=== PATIENT | female | born 1985 | race Caucasian/White ===

== ENCOUNTER → 2017-10-08 11:45 | Outpatient (CLI) | payer MEDICAID, SELFPAY ==
[2017-10-09 16:01] LABS: Chlamydia Trachomatis by PCR Negative (Negative); Neisserai gonorrhoeae by PCR Negative (Negative); Probe Check PASS; Sample Adequacy Control PASS; Specimen Processing Control PASS
[2017-10-11 15:14] LABS: HPV APTIMA, High Risk Negative (Negative)
== END ==
PROVIDERS: Visit Provider Obstetrics & Gynecology
DX: Z12.4 Encounter for screening for malignant neoplasm of cervix (principal); Z11.3 Encounter for screening for infections with a predominantly sexual mode of transmission
CPT/HCPCS: 87491; 87591; 88175; G0145

== ENCOUNTER → 2017-11-21 11:58 | Outpatient (CLI) | payer MEDICAID, SELFPAY ==
[2017-11-26 11:27] LABS: PARVOVIRUS B19 IGG 7.2 index (0.0-0.8); PARVOVIRUS B19 IGM 0.3 index (0.0-0.8)
== END ==
PROVIDERS: Visit Provider Obstetrics & Gynecology
DX: O26.899 Other specified pregnancy related conditions, unspecified trimester (principal); Z3A.00 Weeks of gestation of pregnancy not specified; T75.89XA Other specified effects of external causes, initial encounter
CPT/HCPCS: 36415; 86747

== ENCOUNTER → 2018-04-08 13:30 | Outpatient (CLI) | payer MEDICAID, SELFPAY ==
[2018-04-09 13:13] LABS: Group B Strep DNA By PCR Negative (Negative); Internal Control PASS; Probe Check PASS; Specimen Processing Control PASS
== END ==
PROVIDERS: Visit Provider Obstetrics & Gynecology
DX: Z36.85 Encounter for antenatal screening for Streptococcus B (principal)
CPT/HCPCS: 87081; 87653

== ENCOUNTER 2018-04-26 17:45 | Outpatient (CLI) | payer MEDICAID, SELFPAY ==
[2018-04-26] MEDS: Lactated Ringers 1,000 ML 999 ML IV (18:45)
[2018-04-26 19:19] VITALS: BMI 26.6
[2018-04-26] MEDS: Lactated Ringers 1,000 ML 250 ML IV (20:30)
--- NOTE | 2018-04-27 08:45 | OB.TRI.NOTE ---
History of Present Illness Date of Service: 04/26/18 Was patient seen by the physician?: No Reason For Visit: R/O LABOR Date of Service: 04/26/18 Final LANEY: 05/08/18 Final LANEY Source: US <20 weeks Gestational age: 38 Weeks and 3 Days History of Present Illness: Reports regular contractions, denies signs of SROM. Allergies amoxicillin Allergy (Verified 12/03/16 04:50) Hives Physical Exam General: Alert, Oriented x3, Cooperative, No apparent distress Cardiovascular: Regular rate, Regular Rhythm Lungs: Clear to auscultation, Normal air movement Abdomen: Soft, Non Tender, Non-Distended, Gravid, Appropriate for Gestational Age Extremities:: No edema Neurological: Neuro grossly intact BRICK [place]ARD HAND: Normal external genitalia Estimated gestational size: Appropriate for gestational size Presentation: Cephalic Cervix Dilation (cm): 0 Station: -3 NST - FHR Rate Baby A Baseline: 120-130s Variability:: Moderate Accelerations:: 15 x 15 Decelerations:: None NST Reactive:: Yes, Appropriate for gestational age FHR Category:: Category I Uterine Activity:: Irregular Impression/Plan Observed over 3+ hours with no change in cervical exam. Given contractions are not felt that strongly will discharge home. I do not feel in active labor. If contractions increase or has signs of SROM instructed to return.
--- NOTE | 2018-04-27 08:51 | OB.TRI.HP_ITS ---
History of Present Illness Date of Service: 04/26/18 Was patient seen by the physician?: No Reason For Visit: R/O LABOR Date of Service: 04/26/18 Final LANEY: 05/08/18 Final LANEY Source: US <20 weeks Gestational age: 38 Weeks and 3 Days History of Present Illness: Reports regular contractions, denies signs of SROM. Allergies amoxicillin Allergy (Verified 12/03/16 04:50) Hives Physical Exam General: Alert, Oriented x3, Cooperative, No apparent distress Cardiovascular: Regular rate, Regular Rhythm Lungs: Clear to auscultation, Normal air movement Abdomen: Soft, Non Tender, Non-Distended, Gravid, Appropriate for Gestational Age Extremities:: No edema Neurological: Neuro grossly intact [employer] T[employer]ER: Normal external genitalia Estimated gestational size: Appropriate for gestational size Presentation: Cephalic Cervix Dilation (cm): 0 Station: -3 NST - FHR Rate Baby A Baseline: 120-130s Variability:: Moderate Accelerations:: 15 x 15 Decelerations:: None NST Reactive:: Yes, Appropriate for gestational age FHR Category:: Category I Uterine Activity:: Irregular Impression/Plan Observed over 3+ hours with no change in cervical exam. Given contractions are not felt that strongly will discharge home. I do not feel in active labor. If contractions increase or has signs of SROM instructed to return.
== END 2018-04-26 21:50 | disposition home or self-care (01) ==
LOC: WPOUT 18:20 → WP 18:23
PROVIDERS: Visit Provider Obstetrics & Gynecology
DX: Z34.93 Encounter for supervision of normal pregnancy, unspecified, third trimester (principal)
CPT/HCPCS: 96360; 96361; 59025; 59050; 99218; J7120; G0378